=== PATIENT | male | born 1975 | race Caucasian/White ===

== ENCOUNTER 2018-04-07 18:34 | Emergency (ER) | payer BC, OTHER ==
[~2018-04-07] VITALS: Ht 177.8 cm; Wt 90.7 kg
[2018-04-07 19:38] LABS: BASOPHILS 0.2 % (0.0-2.0); EOSINOPHILS 0.1 % (0.0-3.0); HEMATOCRIT 40.2 % (42.0-52.0); LYMPHOCYTES 7.8 % (24.0-44.0); MCH 32.8 pg (26.0-34.0); MCHC 34.9 g/dL (28.0-37.0); MCV 93.8 fL (80.0-100.0); PLATELET COUNT 163 thou/uL (150-400); POLYS 82.9 % (36.0-66.0); RBC 4.28 mil/uL (4.50-6.00); RDW 12.8 % (10.5-14.5); WBC 12.1 thou/uL (4.0-11.0)
[2018-04-07] MEDS ORDERED: SERTRALINE HCL50 MG PO (19:45)
[2018-04-07] MEDS ORDERED: TRAZODONE HCL100 MG PO (19:45)
[2018-04-07 19:46] LABS: CALCIUM 8.9 mg/dL (8.5-10.1); CREATININE 1.2 mg/dL (0.7-1.3); POTASSIUM 4.4 mmol/L (3.5-5.1)
[2018-04-07 19:52] LABS: ALBUMIN 3.5 g/dL (3.4-5.0); TOTAL BILIRUBIN 0.5 mg/dL (<0.1-1.0); TOTAL PROTEIN 7.2 g/dL (6.4-8.2)
[2018-04-07 21:17] LABS: URINE BILIRUBIN NEGATIVE (Negative); URINE BLOOD 3+ (Negative); URINE CLARITY CLEAR; URINE COLOR YELLOW; URINE GLUCOSE-RANDOM* NEGATIVE (Negative); URINE KETONES NEGATIVE (Negative); URINE LEUKOCYTES NEGATIVE (Negative); URINE NITRITE NEGATIVE (Negative); URINE PROTEIN (DIPSTICK) NEGATIVE (Negative); URINE SPECIFIC GRAVITY < 1.005 (1.005-1.035)
[2018-04-07] MEDS ORDERED: PREDNISONE 10 M10 MG PO (21:23)
[2018-04-07 21:24] LABS: SQUAMOUS None Seen /LPF (0-3)
[2018-04-07 21:25] LABS: BACTERIA 1-9 Few /HPF (None Seen); CASTS None Seen /LPF (None Seen); CRYSTALS None Seen /LPF (None Seen); URINE WBC None Seen /HPF (0-5)
[2018-04-07] MEDS ORDERED: NORCO 5-325 TA1 EACH PO (21:25)
[2018-04-07 21:50] VITALS: BP 111/66
== END 2018-04-07 21:51 | disposition home or self-care (01) ==
LOC: ER 18:34
PROVIDERS: Physician Assistant
DX: J02.0 Streptococcal pharyngitis (principal); E86.0 Dehydration; F31.9 Bipolar disorder, unspecified; Z88.2 Allergy status to sulfonamides